=== PATIENT | female | born 1960 | race Caucasian/White ===

== ENCOUNTER 2019-11-19 18:28 | Observation (INO) | payer SELFPAY ==
[2019-11-19 18:36] VITALS: BP 163/84; PULSE 105; RESP 22; TEMP 37.1; O2SAT 98
[2019-11-19 18:43] LABS: Appearance Urine UA SL CLOUDY; Bilirubin Urine UA NEGATIVE (NEGATIVE); Color Urine UA YELLOW; Glucose Urine UA NEGATIVE (Negative); Ketones Urine UA NEGATIVE (NEGATIVE); Leukocyte Esterase Urine UA NEGATIVE (NEGATIVE); Nitrite Urine UA NEGATIVE (Negative); Occult Blood Urine UA 2+ (Negative); Protein Urine UA 2+ (Negative); Specific Gravity Urine UA 1.015 (1.000-1.035)
--- NOTE | 2019-11-19 18:43 | ED.ABDPAIN ---
HPI - Abdominal Pain <ABIGAIL Rodriguez - Last Filed: 11/19/19 21:07> General Chief Complaint: Abdominal Pain Stated Complaint: abd pain/fever/muscle cramps Time Seen by Provider: 11/19/19 18:34 Source: patient and family Mode of arrival: Ambulatory Limitations: no limitations History of Present Illness HPI narrative: The patient is a 59-year-old female who denies pertinent medical history, does have history of depression who presents with a chief complaint of abdominal pain and fever for the past week. She states her pain started in her left lower quadrant, she was having temps up to 102. Patient states that her had some veterinary clindamycin, so he gave her 2 cc of unknown concentration of liquid clindamycin prescribed for one of her dogs twice a day for the past week. He states that this helped her feel better in decreased her fevers. She complains of nausea, she has vomited once. She denies any dysuria does complain of urgency and frequency. The patient states she has not seen a healthcare provider in over 20 years. Related Data Home Medications Medication Instructions Recorded Confirmed No Known Home Medications 11/19/19 11/19/19 Allergies Allergy/AdvReac Type Severity Reaction Status Date / Time Tetracyclines Allergy Verified 11/19/19 20:37 Review of Systems <ABIGAIL Rodriguez - Last Filed: 11/19/19 21:07> Review of Systems Narrative: GENERAL: See HPI HEENT: Denies sinus pain, ear pain, sore throat, difficulty swallowing, dizziness. RESPIRATORY: Denies dyspnea, cough, wheezing, hemoptysis, sputum. CARDIOVASCULAR: Denies chest pain, palpitations, orthopnea, edema, GASTROINTESTINAL: See HPI : See HPI MUSCULOSKELETAL: denies weakness, joint pain, or bony pain SKIN: Denies rash, skin lesions, or other NEUROLOGIC: Denies weakness, headache, numbness, change in speech, confusion, seizures, incoordination. PSYCHIATRIC: No concerning psychosocial issues. 12 point review of systems is negative except for those stated above Exam <ABIGAIL Rodriugez - Last Filed: 11/19/19 21:07> Narrative Exam Narrative: GENERAL: This is a well-nourished, well-developed patient, no acute distress HEAD: Atraumatic. Normocephalic. No temporal or scalp tenderness. EYES: Pupils equal round and reactive. Extraocular motions intact. No scleral icterus. No injection or drainage. ENT: Nose without bleeding, purulent drainage or septal hematoma. Throat without erythema, tonsillar hypertrophy or exudate. Uvula midline. Airway patent. NECK: Trachea midline. No JVD or lymphadenopathy. Supple, nontender, no meningeal signs. CARDIOVASCULAR: Regular rate and rhythm RESPIRATORY: Clear to auscultation. Breath sounds equal bilaterally. No wheezes, rales, or rhonchi. No cough. No increased respiratory effort. No accessory muscle use. GASTROINTESTINAL: Abdomen soft, non-tender, nondistended. No hepato-splenomegaly, or palpable masses. No guarding. Active bowel sounds all 4 quadrants. EXTREMITIES: No clubbing, cyanosis, or edema. No joint tenderness, effusion, or edema noted. BACK: Nontender without deformity or crepitance. No flank tenderness. NEURO: AOx3. SKIN: No rash or erythema visible skin Initial Vital Signs Initial Vital Signs: Vital Signs Temperature 98.8 F 11/19/19 18:36 Pulse Rate 105 H 11/19/19 18:36 Respiratory Rate 22 11/19/19 18:36 Blood Pressure 163/84 H 11/19/19 18:36 Pulse Oximetry 98 11/19/19 18:36 <Mian New DO - Last Filed: 11/19/19 21:12> Initial Vital Signs Initial Vital Signs: Vital Signs Temperature 98.8 F 11/19/19 18:36 Pulse Rate 105 H 11/19/19 18:36 Respiratory Rate 22 11/19/19 18:36 Blood Pressure 163/84 H 11/19/19 18:36 Pulse Oximetry 98 11/19/19 18:36 Scores <STEPHANIE Rodriguez - Last Filed: 11/19/19 21:07> GCS [place] coma scale eye opening: Spontaneous [place] coma scale verbal response: Orientated [place] coma scale motor response: Obey commands [place] coma scale total score: 15 Course <STEPHANIE Rodriguez - Last Filed: 11/19/19 21:07> Orders Ordered: ED Orders 11/19/19 18:35 Urinalysis and Microscopic Stat Urine Culture Stat 11/19/19 18:55 Amylase Stat Complete Blood Count AUTO DIFF Stat Comprehensive Metabolic Panel Stat Lactate (Lactic Acid) Stat Lipase Stat Procalcitonin Stat 11/19/19 19:24 CT abdomen pelvis w con Stat 11/19/19 20:25 XR chest 1V Stat 11/19/19 20:26 Consult to Urology Stat Acetaminophen (Tylenol) 650 mg PO Q6HR PRN PRN Reason: Fever/Mild Pain (1-3) Lactated Ringer's (Lactated Ringers) 1,000 mls @ 100 mls/hr IV CONT LUCINDA Naloxone HCl (Narcan) 0.2 mg IV Q2MIN PRN PRN Reason: Opiate Reversal Ondansetron HCl (Zofran) 4 mg IV Q6HR PRN PRN Reason: Nausea And Vomiting Discontinued Medications Sodium Chloride (Normal Saline 0.9%) 1,000 mls @ 1,000 mls/hr IV BOLUS ONE Stop: 11/19/19 19:40 Last Infusion: 11/19/19 20:18 Dose: 0 mls/hr Documented by: Admin: 11/19/19 19:05 Dose: 1,000 mls/hr Documented by: JONNY Ondansetron HCl (Zofran) 4 mg IV NOW ONE Stop: 11/19/19 18:42 Last Admin: 11/19/19 19:05 Dose: 4 mg Documented by: JONNY Vital Signs Vital signs: Vital Signs - 8 hr 11/19/19 18:36 Temperature 98.8 F Pulse Rate 105 H Respiratory Rate 22 Blood Pressure 163/84 H Pulse Oximetry 98 <Mian New DO - Last Filed: 11/19/19 21:12> Orders Ordered: ED Orders 11/19/19 18:35 Urinalysis and Microscopic Stat Urine Culture Stat 11/19/19 18:55 Amylase Stat Complete Blood Count AUTO DIFF Stat Comprehensive Metabolic Panel Stat Lactate (Lactic Acid) Stat Lipase Stat Procalcitonin Stat 11/19/19 19:24 CT abdomen pelvis w con Stat 11/19/19 20:25 XR chest 1V Stat 11/19/19 20:26 Consult to Urology Stat Acetaminophen (Tylenol) 650 mg PO Q6HR PRN PRN Reason: Fever/Mild Pain (1-3) Lactated Ringer's (Lactated Ringers) 1,000 mls @ 100 mls/hr IV CONT LUCINDA Naloxone HCl (Narcan) 0.2 mg IV Q2MIN PRN PRN Reason: Opiate Reversal Ondansetron HCl (Zofran) 4 mg IV Q6HR PRN PRN Reason: Nausea And Vomiting Discontinued Medications Sodium Chloride (Normal Saline 0.9%) 1,000 mls @ 1,000 mls/hr IV BOLUS ONE Stop: 11/19/19 19:40 Last Infusion: 11/19/19 20:18 Dose: 0 mls/hr Documented by: Admin: 11/19/19 19:05 Dose: 1,000 mls/hr Documented by: JONNY Ondansetron HCl (Zofran) 4 mg IV NOW ONE Stop: 11/19/19 18:42 Last Admin: 11/19/19 19:05 Dose: 4 mg Documented by: JONNY Vital Signs Vital signs: Vital Signs - 8 hr 11/19/19 18:36 Temperature 98.8 F Pulse Rate 105 H Respiratory Rate 22 Blood Pressure 163/84 H Pulse Oximetry 98 MDM - Abdominal Pain <STEPHANIE Rodriguez - Last Filed: 11/19/19 21:07> Differential Diagnosis Differential diagnosis: Likely abdominal pain, acute appendicitis, calculus of kidney, constipation, diverticulitis, gastroenteritis and pancreatitis Lab Data Attestation: I reviewed the patient's lab results. Result diagrams: 11/19/19 18:55 11/19/19 18:55 Labs: Lab Results 11/19/19 11/19/19 11/19/19 Range/Units 18:35 18:55 18:55 WBC 13.0 H (4.5-11.0) X10^3/uL RBC 3.65 L (4.0-5.2) X10^6/uL Hgb 12.0 (12.0-16.0) g/dL Hct 35.1 L (36-46) % MCV 96.2 (80-100) fL MCH 32.7 (26-34) PG MCHC 34.0 (30-36) % RDW 13.3 (11.6-14.8) % Plt Count 286 (150-400) X10^3/uL Neut % (Auto) 77.5 H (50-75) % Lymph % (Auto) 11.2 L (25-40) % Weston % (Auto) 10.5 (3-14) % Eos % (Auto) 0.4 L (2-4) % Baso % (Auto) 0.4 (0-2) % Neut # (Auto) 73797 H (5738-0957) /uL Lymph # (Auto) 1500 (5723-7226) /uL Weston # (Auto) 1400 H (0-900) /uL Eos # (Auto) 0 (0-450) /uL Baso # (Auto) 0 (0-100) /uL Sodium (137-145) mmol/L Potassium (3.4-5.1) mmol/L Chloride (98-107) mmol/L Carbon Dioxide (22-32) mmol/L BUN (7-17) mg/dL Creatinine (0.52-1.04) mg/dL Estimated GFR (>60) mL/min BUN/Creatinine Ratio (6-22) Glucose (70-100) mg/dL Lactate (0.7-2.1) mmol/L Calcium (8.4-10.2) mg/dL Total Bilirubin (0.2-1.3) mg/dL AST (14-36) IU/L ALT (<35) IU/L Alkaline Phosphatase (38-126) U/L Total Protein (6.3-8.2) g/dL Albumin (3.5-5.0) g/dL Globulin (1.7-4.1) g/dL Albumin/Globulin Ratio (1.0-2.8) Amylase (30-110) U/L Lipase (23-300) U/L Procalcitonin 1.11 H (<0.5) ng/mL Urine Color Yellow Urine Appearance Sl cloudy Urine pH 5.5 (4.5-8.0) Ur Specific Carpenter 1.015 (1.000-1.035) Urine Protein 2+ H (Negative) Urine Glucose (UA) Negative (Negative) g/dL Urine Ketones Negative (NEGATIVE) Urine Occult Blood 2+ H (Negative) Urine Nitrate Negative (Negative) Urine Bilirubin Negative (NEGATIVE) Urine Urobilinogen 1.0 (0.2) E.U./dL Ur Leukocyte Esterase Negative (NEGATIVE) Urine RBC 1-5/hpf (0-5/HPF) Urine WBC 1-5/hpf (0-5/HPF) Ur Squamous Epith Cells 1-5 /hpf (0-5/HPF) Urine Bacteria Occasional (0-1) (None) Granular Casts 1-5/lpf (None) Other Casts 1-5 mixed cell /lfp Urine Mucus 1+ H (Negative) Ur Culture Indicated? Cult not indicated 11/19/19 11/19/19 Range/Units 18:55 18:55 WBC (4.5-11.0) X10^3/uL RBC (4.0-5.2) X10^6/uL Hgb (12.0-16.0) g/dL Hct (36-46) % MCV (80-100) fL MCH (26-34) PG MCHC (30-36) % RDW (11.6-14.8) % Plt Count (150-400) X10^3/uL Neut % (Auto) (50-75) % Lymph % (Auto) (25-40) % Weston % (Auto) (3-14) % Eos % (Auto) (2-4) % Baso % (Auto) (0-2) % Neut # (Auto) (7275-2013) /uL Lymph # (Auto) (7306-5172) /uL Weston # (Auto) (0-900) /uL Eos # (Auto) (0-450) /uL Baso # (Auto) (0-100) /uL Sodium 129 L (137-145) mmol/L Potassium 3.4 (3.4-5.1) mmol/L Chloride 90 L (98-107) mmol/L Carbon Dioxide 26 (22-32) mmol/L BUN 22 H (7-17) mg/dL Creatinine 1.45 H (0.52-1.04) mg/dL Estimated GFR 37.2 L (>60) mL/min BUN/Creatinine Ratio 15.2 (6-22) Glucose 149 H (70-100) mg/dL Lactate 1.5 (0.7-2.1) mmol/L Calcium 9.6 (8.4-10.2) mg/dL Total Bilirubin 0.9 (0.2-1.3) mg/dL AST 44 H (14-36) IU/L ALT 96 H (<35) IU/L Alkaline Phosphatase 121 (38-126) U/L Total Protein 8.1 (6.3-8.2) g/dL Albumin 3.8 (3.5-5.0) g/dL Globulin 4.3 H (1.7-4.1) g/dL Albumin/Globulin Ratio 0.9 L (1.0-2.8) Amylase 58 (30-110) U/L Lipase 259 (23-300) U/L Procalcitonin (<0.5) ng/mL Urine Color Urine Appearance Urine pH (4.5-8.0) Ur Specific Carpenter (1.000-1.035) Urine Protein (Negative) Urine Glucose (UA) (Negative) g/dL Urine Ketones (NEGATIVE) Urine Occult Blood (Negative) Urine Nitrate (Negative) Urine Bilirubin (NEGATIVE) Urine Urobilinogen (0.2) E.U./dL Ur Leukocyte Esterase (NEGATIVE) Urine RBC (0-5/HPF) Urine WBC (0-5/HPF) Ur Squamous Epith Cells (0-5/HPF) Urine Bacteria (None) Granular Casts (None) Other Casts Urine Mucus (Negative) Ur Culture Indicated? Imaging Data CT scan - abdomen/pelvis: Radiologist's Impression: [address] [place] [address] CT Scan Report Signed Patient: Yoel Plummer GMR#: [id number] : 2Acct:[id number] Age/Sex: 59 / FDate of Service: 11/19/19 Loc: ED Accession Number: [id number] Procedure: CT abdomen pelvis w con Ordering Provider: Angy Jane PHOTOGRAPHER FINISH- PROCEDURE: CT ABDOMEN PELVIS W CON INDICATIONS: LLQ pain, fever TECHNIQUE: After the administration of intravenous contrast, 5 mm thick sections acquired from the diaphragm to the symphysis. 5 mm coronal and sagittal reformats were acquired. For radiation dose reduction, the following was used: automated exposure control, adjustment of mA and/or kV according to patient size. COMPARISON: None. FINDINGS: Image quality: Excellent. ABDOMEN: Lung bases: Lung bases are clear. Heart size is normal. Solid organs: Liver is normal in size and enhancement except for a subtle 2 cm region of right posterior inferior hepatic segment hypodensity which is indistinctly marginated and does not show imaging findings characteristic of a hepatic hemangioma. Gallbladder appears normal . Biliary system is non dilated. Pancreas enhances normally. Spleen is normal in size and enhancement. No adrenal nodules. Kidneys demonstrate asymmetric size and enhancement, without right-sided hydronephrosis. The left kidney measures up to 12.4 cm craniocaudad and the right measures up to 8.9 cm. The left kidney is edematous, and shows reduced renal cortical enhancement, with cortical medullary differentiation on the left and not seen at the same time of scanning on the right. This is associated with moderate hydronephrosis, and mild urothelial enhancement and thickening. This leads to an impacted triangular calculus within the proximal ureter on the right, measuring up to 10 mm craniocaudad an approximately 5 x 6 mm in maximal axial dimension. Peritoneum and bowel: Bowel loops demonstrate normal wall thickness and caliber. No free fluid or air. Nodes and vessels: No retroperitoneal or mesenteric adenopathy by size criteria. Aorta and inferior vena cava are normal in size. Miscellaneous: No ventral hernias. PELVIS: Genitourinary: Bladder wall thickness is normal. Miscellaneous: No inguinal hernias or adenopathy. Bones: No suspicious bony lesions. No vertebral body compression fractures. IMPRESSION: Impacted moderately large calculus within the proximal left ureter measuring up to 10 mm in maximal dimension, craniocaudad, with 5 x 6 mm measurement of the calculus in axial dimensions. This is associated with both hydronephrosis and reduced renal cortical enhancement on the left, indicating high-grade obstruction. Mild urothelial enhancement and thickening on the left raises concern for urinary tract infection superimposed, versus other etiology for inflammatory change involving the urothelium. Findings immediately called to the emergency room healthcare provider caring for the patient. More inferiorly the ureters are normal, and no right-sided acute disease is found. There is a subtle region of hypodensity within the inferior right posterior panic segment, involving an area measuring approximately 2 cm in diameter, indistinctly marginated. This is of uncertain clinical significance and elective follow-up ultrasound through that area is recommended Dictated by: Juan José Reis M.D. on 11/19/2019 at 20:02 Approved by: Juan José Reis M.D. on 11/19/2019 at 20:14 [facility] Narrative Medical decision making narrative: The patient is a 59-year-old female who presents after a week of canine antibiotics with a chief complaint of left lower quadrant pain and fevers. Given her fevers, elevated procalcitonin, leukocytosis to 13, I did obtain a CT abdomen pelvis which illustrated a large impacted calculus of the left ureter. I spoke with Dr. Frank from Urology, who states that he will be able to take the patient to the OR tomorrow. Stated to hold off on antibiotics given that she is afebrile at this point time, no signs of infection in her urine. Urine culture is added per his request. Spoke with MARTY Hernandez who kindly admitted the patient to hospitalist service. Patient and expressed appreciation. Patient was swabbed for coronavirus as per protocol. Disc discussed with patient and her that if she is sick she should seek medical attention and not take canine prescriptions of antibiotics. Patient has been without pain or complaint throughout her stay in the emergency department. She has been hemodynamically stable and nontoxic appearing. <Mian New, - Last Filed: 11/19/19 21:12> Lab Data Labs: Lab Results 11/19/19 11/19/19 11/19/19 Range/Units 18:35 18:55 18:55 WBC 13.0 H (4.5-11.0) X10^3/uL RBC 3.65 L (4.0-5.2) X10^6/uL Hgb 12.0 (12.0-16.0) g/dL Hct 35.1 L (36-46) % MCV 96.2 (80-100) fL MCH 32.7 (26-34) PG MCHC 34.0 (30-36) % RDW 13.3 (11.6-14.8) % Plt Count 286 (150-400) X10^3/uL Neut % (Auto) 77.5 H (50-75) % Lymph % (Auto) 11.2 L (25-40) % Weston % (Auto) 10.5 (3-14) % Eos % (Auto) 0.4 L (2-4) % Baso % (Auto) 0.4 (0-2) % Neut # (Auto) 32159 H (0954-1175) /uL Lymph # (Auto) 1500 (9928-0006) /uL Weston # (Auto) 1400 H (0-900) /uL Eos # (Auto) 0 (0-450) /uL Baso # (Auto) 0 (0-100) /uL Sodium (137-145) mmol/L Potassium (3.4-5.1) mmol/L Chloride (98-107) mmol/L Carbon Dioxide (22-32) mmol/L BUN (7-17) mg/dL Creatinine (0.52-1.04) mg/dL Estimated GFR (>60) mL/min BUN/Creatinine Ratio (6-22) Glucose (70-100) mg/dL Lactate (0.7-2.1) mmol/L Calcium (8.4-10.2) mg/dL Total Bilirubin (0.2-1.3) mg/dL AST (14-36) IU/L ALT (<35) IU/L Alkaline Phosphatase (38-126) U/L Total Protein (6.3-8.2) g/dL Albumin (3.5-5.0) g/dL Globulin (1.7-4.1) g/dL Albumin/Globulin Ratio (1.0-2.8) Amylase (30-110) U/L Lipase (23-300) U/L Procalcitonin 1.11 H (<0.5) ng/mL Urine Color Yellow Urine Appearance Sl cloudy Urine pH 5.5 (4.5-8.0) Ur Specific Carpenter 1.015 (1.000-1.035) Urine Protein 2+ H (Negative) Urine Glucose (UA) Negative (Negative) g/dL Urine Ketones Negative (NEGATIVE) Urine Occult Blood 2+ H (Negative) Urine Nitrate Negative (Negative) Urine Bilirubin Negative (NEGATIVE) Urine Urobilinogen 1.0 (0.2) E.U./dL Ur Leukocyte Esterase Negative (NEGATIVE) Urine RBC 1-5/hpf (0-5/HPF) Urine WBC 1-5/hpf (0-5/HPF) Ur Squamous Epith Cells 1-5 /hpf (0-5/HPF) Urine Bacteria Occasional (0-1) (None) Granular Casts 1-5/lpf (None) Other Casts 1-5 mixed cell /lfp Urine Mucus 1+ H (Negative) Ur Culture Indicated? Cult not indicated 11/19/19 11/19/19 Range/Units 18:55 18:55 WBC (4.5-11.0) X10^3/uL RBC (4.0-5.2) X10^6/uL Hgb (12.0-16.0) g/dL Hct (36-46) % MCV (80-100) fL MCH (26-34) PG MCHC (30-36) % RDW (11.6-14.8) % Plt Count (150-400) X10^3/uL Neut % (Auto) (50-75) % Lymph % (Auto) (25-40) % Weston % (Auto) (3-14) % Eos % (Auto) (2-4) % Baso % (Auto) (0-2) % Neut # (Auto) (1217-0816) /uL Lymph # (Auto) (4151-6157) /uL Weston # (Auto) (0-900) /uL Eos # (Auto) (0-450) /uL Baso # (Auto) (0-100) /uL Sodium 129 L (137-145) mmol/L Potassium 3.4 (3.4-5.1) mmol/L Chloride 90 L (98-107) mmol/L Carbon Dioxide 26 (22-32) mmol/L BUN 22 H (7-17) mg/dL Creatinine 1.45 H (0.52-1.04) mg/dL Estimated GFR 37.2 L (>60) mL/min BUN/Creatinine Ratio 15.2 (6-22) Glucose 149 H (70-100) mg/dL Lactate 1.5 (0.7-2.1) mmol/L Calcium 9.6 (8.4-10.2) mg/dL Total Bilirubin 0.9 (0.2-1.3) mg/dL AST 44 H (14-36) IU/L ALT 96 H (<35) IU/L Alkaline Phosphatase 121 (38-126) U/L Total Protein 8.1 (6.3-8.2) g/dL Albumin 3.8 (3.5-5.0) g/dL Globulin 4.3 H (1.7-4.1) g/dL Albumin/Globulin Ratio 0.9 L (1.0-2.8) Amylase 58 (30-110) U/L Lipase 259 (23-300) U/L Procalcitonin (<0.5) ng/mL Urine Color Urine Appearance Urine pH (4.5-8.0) Ur Specific Carpenter (1.000-1.035) Urine Protein (Negative) Urine Glucose (UA) (Negative) g/dL Urine Ketones (NEGATIVE) Urine Occult Blood (Negative) Urine Nitrate (Negative) Urine Bilirubin (NEGATIVE) Urine Urobilinogen (0.2) E.U./dL Ur Leukocyte Esterase (NEGATIVE) Urine RBC (0-5/HPF) Urine WBC (0-5/HPF) Ur Squamous Epith Cells (0-5/HPF) Urine Bacteria (None) Granular Casts (None) Other Casts Urine Mucus (Negative) Ur Culture Indicated? Discharge Plan Departure Patient Disposition: Admitted as Observation Clinical Impression: Ureter, calculus, Creatinine elevation Admit Date/Time: 11/19/19 20:50 Admit Provider: Steph Bates <Mian New, - Last Filed: 11/19/19 21:12> Cosign ED Attending Cosignature Attestation: Dr New Co-Sign Statement: I was available for consultation during this patient's emergency department visit. This chart is signed by myself for administrative purposes only. I did not have direct contact with this patient during this visit. They were seen independently by the APC.
[2019-11-19 18:45] LABS: pH Urine UA 5.5 (4.5-8.0)
[2019-11-19 18:58] LABS: Bacteria Urine Occasional (0-1); Granular Casts Urine 1-5/LPF; RBC Urine 1-5/HPF (0-5/HPF); Squamous Epithelial Cell Urine 1-5 /HPF (0-5/HPF); WBC Urine 1-5/HPF (0-5/HPF)
[2019-11-19 18:59] LABS: Culture Indicated Urine Cult Not Indicated; Mucus Urine 1+ (Negative); Other Casts Urine 1-5 Mixed Cell /LFP
[2019-11-19 19:01] LABS: Add Manual Diff / Slide Review NO; Basophils Absolute Auto 0 /uL (0-100); Basophils Percent Auto 0.4 % (0-2); Eosinophils Absolute Auto 0 /uL (0-450); Eosinophils Percent Auto 0.4 % (2-4); Hematocrit 35.1 % (36-46); Lymphocytes Absolute Auto 1500 /uL (1100-4500); Lymphocytes Percent Auto 11.2 % (25-40); Mean Corpuscular Hemoglobin 32.7 PG (26-34); Mean Corpuscular Volume 96.2 fL (80-100); Monocytes Absolute Auto 1400 /uL (0-900); Monocytes Percent Auto 10.5 % (3-14); Neutrophils Absolute Auto 10100 /uL (1500-7000); Neutrophils Percent Auto 77.5 % (50-75); Platelet Count 286 X10^3/uL (150-400); Red Blood Cell Count 3.65 X10^6/uL (4.0-5.2); Red Cell Distribution Width 13.3 % (11.6-14.8)
[2019-11-19] MEDS: ONDANSETRON 4 MG/2 ML INJ IV (19:05)
[2019-11-19] MEDS: SODIUM CHLORIDE 0.9% 1,000 ML 1000 ML IV (19:05)
[2019-11-19 19:18] LABS: Alanine Aminotransferase 96 IU/L (<35); Albumin 3.8 g/dL (3.5-5.0); Albumin Globulin Ratio 0.9 (1.0-2.8); Alkaline Phosphatase 121 U/L (38-126); Amylase 58 U/L (30-110); Aspartate Aminotransferase 44 IU/L (14-36); BUN Creatinine Ratio 15.2 (6-22); Bilirubin Total 0.9 mg/dL (0.2-1.3); Blood Urea Nitrogen 22 mg/dL (7-17); Calcium 9.6 mg/dL (8.4-10.2); Carbon Dioxide 26 mmol/L (22-32); Chloride 90 mmol/L (98-107); Estimated Glomerular Filt Rate 37.2 mL/min (>60); Globulin 4.3 g/dL (1.7-4.1); Glucose 149 mg/dL (70-100); HEMOLYSIS < 15 (0-50); Lipase 259 U/L (23-300); Potassium 3.4 mmol/L (3.4-5.1); Sodium 129 mmol/L (137-145); Total Protein 8.1 g/dL (6.3-8.2)
[2019-11-19 19:19] LABS: Lactate (Lactic Acid) 1.5 mmol/L (0.7-2.1)
--- NOTE | 2019-11-19 19:24 | DI.CT.S_ITS ---
PROCEDURE: CT ABDOMEN PELVIS W CON INDICATIONS: LLQ pain, fever TECHNIQUE: After the administration of intravenous contrast, 5 mm thick sections acquired from the diaphragm to the symphysis. 5 mm coronal and sagittal reformats were acquired. For radiation dose reduction, the following was used: automated exposure control, adjustment of mA and/or kV according to patient size. COMPARISON: None. FINDINGS: Image quality: Excellent. ABDOMEN: Lung bases: Lung bases are clear. Heart size is normal. Solid organs: Liver is normal in size and enhancement except for a subtle 2 cm region of right posterior inferior hepatic segment hypodensity which is indistinctly marginated and does not show imaging findings characteristic of a hepatic hemangioma. Gallbladder appears normal . Biliary system is non dilated. Pancreas enhances normally. Spleen is normal in size and enhancement. No adrenal nodules. Kidneys demonstrate asymmetric size and enhancement, without right-sided hydronephrosis. The left kidney measures up to 12.4 cm craniocaudad and the right measures up to 8.9 cm. The left kidney is edematous, and shows reduced renal cortical enhancement, with cortical medullary differentiation on the left and not seen at the same time of scanning on the right. This is associated with moderate hydronephrosis, and mild urothelial enhancement and thickening. This leads to an impacted triangular calculus within the proximal ureter on the right, measuring up to 10 mm craniocaudad an approximately 5 x 6 mm in maximal axial dimension. Peritoneum and bowel: Bowel loops demonstrate normal wall thickness and caliber. No free fluid or air. Nodes and vessels: No retroperitoneal or mesenteric adenopathy by size criteria. Aorta and inferior vena cava are normal in size. Miscellaneous: No ventral hernias. PELVIS: Genitourinary: Bladder wall thickness is normal. Miscellaneous: No inguinal hernias or adenopathy. Bones: No suspicious bony lesions. No vertebral body compression fractures. IMPRESSION: Impacted moderately large calculus within the proximal left ureter measuring up to 10 mm in maximal dimension, craniocaudad, with 5 x 6 mm measurement of the calculus in axial dimensions. This is associated with both hydronephrosis and reduced renal cortical enhancement on the left, indicating high-grade obstruction. Mild urothelial enhancement and thickening on the left raises concern for urinary tract infection superimposed, versus other etiology for inflammatory change involving the urothelium. Findings immediately called to the emergency room healthcare provider caring for the patient. More inferiorly the ureters are normal, and no right-sided acute disease is found. There is a subtle region of hypodensity within the inferior right posterior panic segment, involving an area measuring approximately 2 cm in diameter, indistinctly marginated. This is of uncertain clinical significance and elective follow-up ultrasound through that area is recommended Dictated by: Juan José Reis M.D. on 11/19/2019 at 20:02 Approved by: Juan José Reis M.D. on 11/19/2019 at 20:14
[2019-11-19 19:39] LABS: Procalcitonin 1.11 ng/mL (<0.5)
--- NOTE | 2019-11-19 20:25 | DI.RAD.S_ITS ---
PROCEDURE: XR CHEST 1V INDICATIONS: plan pre operative TECHNIQUE: One view of the chest was acquired. COMPARISON: None. FINDINGS: Surgical changes and devices: None. Lungs and pleura: Lungs are clear. No pleural effusions or pneumothorax. Mediastinum: Mediastinal contours appear normal. Heart size is normal. Bones and chest wall: No suspicious bony lesions. Overlying soft tissues appear unremarkable. IMPRESSION: Normal for age, no contraindication to surgical intervention is found. Dictated by: Juan José Reis M.D. on 11/19/2019 at 20:40 Approved by: Juan José Reis M.D. on 11/19/2019 at 20:41
[2019-11-19 20:54] VITALS: BP 116/67; PULSE 78; RESP 16; O2SAT 96
[2019-11-19 21:30] LABS: COVID19 -Nasal RAPID Negative (Negative)
[2019-11-19 21:50] VITALS: BP 128/80; PULSE 81; RESP 16; TEMP 37.6; O2SAT 97
[2019-11-19 21:52] VITALS: BMI 30.9
[2019-11-19] MEDS: LACTATED RINGERS 1,000 ML 100 ML IV (22:22)
--- NOTE | 2019-11-19 22:36 | PC.NURSE ---
Pt arrived on unit at approx 2200. She denied pain and nausea, voided clear pale yellow 100 mL. Has a strong gait and denies dizziness. HRR, LS = clear. Spouse is in room. From [facility]. NPO.
[2019-11-19 23:50] VITALS: BP 132/73; PULSE 85; RESP 16; TEMP 36.8; O2SAT 97
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
[2019-11-20] VITALS (21 sets, daily range): BP systolic 102–131; BP diastolic 53–78; PULSE 63–95; RESP 16–24; TEMP 35.6–38.7; O2SAT 93–98; BMI 30.9
--- NOTE | 2019-11-20 | DI.RAD.S_ITS ---
PROCEDURE: XR KUB INDICATIONS: Left ureteral calculus TECHNIQUE: One view of the abdomen acquired. COMPARISON: [facility], CT, CT ABDOMEN PELVIS W CON, 11/19/2019, 19:39. FINDINGS: Surgical changes and devices: None. Bowel: Scattered small bowel and colonic gas. No dilated loops of bowel seen. Soft tissues: Subtle density in the left proximal ureter in the region of the previously seen kidney stone on recent CT. No suspicious abdominal calcifications. Bones: No suspicious bony lesions. IMPRESSION: The obstructing calculus in the proximal left ureter seen on recent CT is faintly visualized. Dictated by: Tree Foote M.D. on 11/20/2019 at 7:56 Approved by: Tree Foote M.D. on 11/20/2019 at 7:59
--- NOTE | 2019-11-20 | DI.RAD.S_ITS ---
PROCEDURE: XR ABDOMEN 1V INDICATIONS: left stent placement TECHNIQUE: Single intraoperative fluoroscopic view of the abdomen acquired. COMPARISON: None. FINDINGS: Intraoperative fluoroscopic images of upper abdomen shows a left-sided ureteral stent in place. IMPRESSION: Fluoro guidance was provided intraoperatively for placement of a left-sided ureteral stent. Dictated by: Frakn Loja M.D. on 11/20/2019 at 14:39 Approved by: Frank Loja M.D. on 11/20/2019 at 14:40
[2019-11-20] MEDS: CEFTRIAXONE 1 GM/50 ML FROZ.PIGGY IV (00:08)
[2019-11-20] MEDS: diphenhydrAMINE 25 MG TABLET PO (00:41)
[2019-11-20 05:28] LABS: Add Manual Diff / Slide Review NO; Basophils Absolute Auto 100 /uL (0-100); Basophils Percent Auto 0.5 % (0-2); Eosinophils Absolute Auto 100 /uL (0-450); Eosinophils Percent Auto 0.6 % (2-4); Hematocrit 31.8 % (36-46); Hemoglobin 10.7 g/dL (12.0-16.0); Lymphocytes Absolute Auto 1300 /uL (1100-4500); Lymphocytes Percent Auto 11.9 % (25-40); Mean Corpuscular HGB Conc 33.6 % (30-36); Mean Corpuscular Hemoglobin 32.6 PG (26-34); Mean Corpuscular Volume 96.9 fL (80-100); Monocytes Absolute Auto 1300 /uL (0-900); Monocytes Percent Auto 11.9 % (3-14); Neutrophils Absolute Auto 8300 /uL (1500-7000); Neutrophils Percent Auto 75.1 % (50-75); Platelet Count 267 X10^3/uL (150-400); Red Blood Cell Count 3.28 X10^6/uL (4.0-5.2); Red Cell Distribution Width 13.6 % (11.6-14.8)
[2019-11-20 05:35] LABS: Blood Urea Nitrogen 19 mg/dL (7-17); Calcium 8.8 mg/dL (8.4-10.2); Carbon Dioxide 27 mmol/L (22-32); Chloride 98 mmol/L (98-107); Estimated Glomerular Filt Rate 40.1 mL/min (>60); Glucose 109 mg/dL (70-100); HEMOLYSIS < 15 (0-50); Potassium 4.3 mmol/L (3.4-5.1); Sodium 133 mmol/L (137-145)
[2019-11-20] MEDS: ACETAMINOPHEN 325 MG TABLET 650 MG PO (06:11)
--- NOTE | 2019-11-20 06:37 | PC.NURSE ---
Strained all her urine no urinary calculi noted. But pt. C/O pain @ 0610, shivering & temp. up to 101.7. Pain level is up to 7 now, earlier she denied pain. Medicated with 650 mg. of Tylenol PO with sips of water & MARTY Bates notified. Will cont. POC & monitor.
--- NOTE | 2019-11-20 10:30 | CM.DANOTE ---
DCP: Case received, EMR reviewed and met with patient. Introduced self and role. Was able to obtain some information from patient regarding her baseline activity level as well as living situation. DCP assessment completed with information currently available. Patient is a 59 year old female who admitted yesterday evening to the care of the hospitalist team. PCP: Dr. Cole. Payer: confirmed: No insurance. Patient came to the hospital via private vehicle secondary to abdominal pain, fever, as well as nausea. Patient holds diagnosis of urethral stone. She is to be having a cystoscopy today. Met with patient in her room. She has not seen a provider in approximately 20 years. Confirmed with patient that she does not have any health insurance. She does have a [employer] business. Patient just never felt like she needed to see a doctor. Her and her spouse, Chilango reside in [place] on [address]. She is independent at baseline. Let patient know that this rn case manager would notify admission counselors, regarding to her currently being uninsured, so they can discuss options. Sent them an email, and they stated that they would be coming up on the floor to discuss, and possibly bring an application. P: DCP to continue to follow. She should be able to go home when she is medically stable. Kristie Fry RN/[employer]ptic Tank Service Technician
[2019-11-20] MEDS: LACTATED RINGERS 1,000 ML 100 ML IV (10:34)
--- NOTE | 2019-11-20 12:31 | P.CONS_ITS ---
History of Present Illness Consult details Date Patient Seen: 11/20/19 Time Patient Seen: 06:30 Chief complaint: abd pain/fever/muscle cramps Reason for consult: Obstructing 10 x 6 mm left proximal ureteral calculus Narrative: The patient is a very pleasant 59-year-old white female who was admitted through the ED last night for presenting complaint of 1 week history of left abdominal pain and fever. She has not had any health care for his some 20 years. The on set of her symptoms, her had provided her oral clindamycin and liquid form that had been prescribed for 1 of their pets. She does admit having some a subjective improvement but her situation deteriorated throughout the day yesterday prompting presentation for formal evaluation. White blood cell count was 13K, procalcitonin was elevated, and she had fever of 102? F at presentation. Urinalysis was devoid of white cells and significant bacteria, but hematuria was noted. CT KUB demonstrated a pyramidal shaped calculus impacted in proximal left ureter measuring approximately 10 mm x 6 mm. She was then admitted in urological consultation requested. She denies a history of UTI or previous stone. Meds Home Medications and Allergies Home Medications Medication Instructions Recorded Confirmed Type No Known Home Medications 11/19/19 11/19/19 History Allergies Allergy/AdvReac Type Severity Reaction Status Date / Time Tetracyclines Allergy Verified 11/19/19 20:37 Review of Systems Review of Systems ROS: Yes All systems reviewed with the patient and are negative except as otherwise documented Exam Vital Signs (past 8 hours): - 11/20/19 05:13 11/20/19 06:10 11/20/19 06:11 Temperature 99.5 F 101.7 F H 101.7 F H Pulse Rate 78 Respiratory Rate 18 Blood Pressure 119/74 Pulse Oximetry 96 11/20/19 06:48 11/20/19 07:12 11/20/19 09:37 Temperature 100.4 F H 98.4 F Pulse Rate 95 H Respiratory Rate 16 Blood Pressure 105/53 L Pulse Oximetry 93 96 Oxygen Delivery Method Room Air Oxygen Flow Rate 0 Narrative Exam Narrative: She is a well-developed and mildly over nourished white female lying comfortably in bed. She is diaphoretic. She denies current chills but has had intermittent chills and diaphoresis since admission. Head/neck-sclera clear pupils are equal. Neck is supple, no JVD or adenopathy. Chest-clear and equal effort and expansion bilaterally. Heart-rate is about 90, rhythm is regular. No extra sounds appreciated. Abdomen-nondistended, protuberant, nontender. Bowel sounds are active. Objective Labs Result Diagrams: 11/20/19 04:55 11/20/19 04:55 Labs: Laboratory Results - last 24 hr 11/19/19 11/19/19 11/19/19 18:35 18:55 18:55 WBC 13.0 H RBC 3.65 L Hgb 12.0 Hct 35.1 L MCV 96.2 MCH 32.7 MCHC 34.0 RDW 13.3 Plt Count 286 Neut % (Auto) 77.5 H Lymph % (Auto) 11.2 L [place] % (Auto) 10.5 Eos % (Auto) 0.4 L Baso % (Auto) 0.4 Neut # (Auto) 55517 H Lymph # (Auto) 1500 [place] # (Auto) 1400 H Eos # (Auto) 0 Baso # (Auto) 0 Sodium Potassium Chloride Carbon Dioxide BUN Creatinine Estimated GFR BUN/Creatinine Ratio Glucose Lactate Calcium Total Bilirubin AST ALT Alkaline Phosphatase Total Protein Albumin Globulin Albumin/Globulin Ratio Amylase Lipase Procalcitonin 1.11 H Urine Color Yellow Urine Appearance Sl cloudy Urine pH 5.5 Ur Specific [place] 1.015 Urine Protein 2+ H Urine Glucose (UA) Negative Urine Ketones Negative Urine Occult Blood 2+ H Urine Nitrate Negative Urine Bilirubin Negative Urine Urobilinogen 1.0 Ur Leukocyte Esterase Negative Urine RBC 1-5/hpf Urine WBC 1-5/hpf Ur Squamous Epith Cells 1-5 /hpf Urine Bacteria Occasional (0-1) Granular Casts 1-5/lpf Other Casts 1-5 mixed cell /lfp Urine Mucus 1+ H Ur Culture Indicated? Cult not indicated COVID-19 PCR 11/19/19 11/19/19 11/19/19 18:55 18:55 20:30 WBC RBC Hgb Hct MCV MCH MCHC RDW Plt Count Neut % (Auto) Lymph % (Auto) [place] % (Auto) Eos % (Auto) Baso % (Auto) Neut # (Auto) Lymph # (Auto) [place] # (Auto) Eos # (Auto) Baso # (Auto) Sodium 129 L Potassium 3.4 Chloride 90 L Carbon Dioxide 26 BUN 22 H Creatinine 1.45 H Estimated GFR 37.2 L BUN/Creatinine Ratio 15.2 Glucose 149 H Lactate 1.5 Calcium 9.6 Total Bilirubin 0.9 AST 44 H ALT 96 H Alkaline Phosphatase 121 Total Protein 8.1 Albumin 3.8 Globulin 4.3 H Albumin/Globulin Ratio 0.9 L Amylase 58 Lipase 259 Procalcitonin Urine Color Urine Appearance Urine pH Ur Specific [place] Urine Protein Urine Glucose (UA) Urine Ketones Urine Occult Blood Urine Nitrate Urine Bilirubin Urine Urobilinogen Ur Leukocyte Esterase Urine RBC Urine WBC Ur Squamous Epith Cells Urine Bacteria Granular Casts Other Casts Urine Mucus Ur Culture Indicated? COVID-19 PCR Negative 11/20/19 11/20/19 04:55 04:55 WBC 11.0 RBC 3.28 L Hgb 10.7 L Hct 31.8 L MCV 96.9 MCH 32.6 MCHC 33.6 RDW 13.6 Plt Count 267 Neut % (Auto) 75.1 H Lymph % (Auto) 11.9 L [place] % (Auto) 11.9 Eos % (Auto) 0.6 L Baso % (Auto) 0.5 Neut # (Auto) 8300 H Lymph # (Auto) 1300 [place] # (Auto) 1300 H Eos # (Auto) 100 Baso # (Auto) 100 Sodium 133 L Potassium 4.3 Chloride 98 Carbon Dioxide 27 BUN 19 H Creatinine 1.36 H Estimated GFR 40.1 L BUN/Creatinine Ratio 14.0 Glucose 109 H Lactate Calcium 8.8 Total Bilirubin AST ALT Alkaline Phosphatase Total Protein Albumin Globulin Albumin/Globulin Ratio Amylase Lipase Procalcitonin Urine Color Urine Appearance Urine pH Ur Specific [place] Urine Protein Urine Glucose (UA) Urine Ketones Urine Occult Blood Urine Nitrate Urine Bilirubin Urine Urobilinogen Ur Leukocyte Esterase Urine RBC Urine WBC Ur Squamous Epith Cells Urine Bacteria Granular Casts Other Casts Urine Mucus Ur Culture Indicated? COVID-19 PCR Assessment & Plan Assessment & Plan narrative: Assessment: 1. Obstructing 10 x 6 mm left proximal ureteral calculus. 2. Probable urosepsis with outpatient treatment with an antibiotic prior to presentation. Plan: 1. Urgent scheduling to operating room today for cystoscopy and placement left ureteral stent. Reviewed findings then discussed impression. Explained the rationale and indications for urgent endoscopic stent placement for decompression of the likely infected left upper tract. Explained the common side effects, possible complications, perioperative limitations/restrictions in reasonable expectations of outcomes and recovery. Specifically, I explained that definitive treatment of the stone will occur secondarily following adequate course of antibiotic treatment and clinical improvement. Both her and her who was present agree and wish to proceed.
--- NOTE | 2019-11-20 13:16 | PM.PREOP ---
Pre-operative Note COVID-19 COVID-19 status: Negative Interval Note History & Physical reviewed/Exam performed by Physician: Yes Changes to H&P: No
[2019-11-20] MEDS: LACTATED RINGERS 1,000 ML 42 ML IV (13:45)
--- NOTE | 2019-11-20 13:55 | PM.PN.1 ---
Subjective Subjective Date Patient Seen: 11/20/19 Time Patient Seen: 13:55 Interval history: Yoel Plummer is a pleasant 59 y.o. female with no current medical problems who presented to the ED with a chief complaint of abdominal pain and fever for the past week. She was found to have an obstructing L ureteral stone and will undergo cystoscopy with stent placement later today with urology. Urine cultures are pending. Patient was febrile on admission but feels improved. She took oral antibiotics that were prescribed for her pets. She had a severe episode of abdominal pain this morning which resolved. Pain is primarily left lower quadrant that starts in her back and radiates down. Admission creatinine of 1.45 did improved slightly to 1.36 early this morning. She has not had any primary care in many years. Exam Vital Signs (past 8 hours): - 11/20/19 06:10 11/20/19 06:11 11/20/19 06:48 Temperature 101.7 F H 101.7 F H 100.4 F H Pulse Rate Respiratory Rate Blood Pressure Pulse Oximetry 11/20/19 07:12 11/20/19 09:37 11/20/19 12:48 Temperature 98.4 F 97.2 F L Pulse Rate 95 H 79 Respiratory Rate 16 16 Blood Pressure 105/53 L 102/65 Pulse Oximetry 93 96 95 11/20/19 13:19 Temperature 99.4 F Pulse Rate 76 Respiratory Rate 16 Blood Pressure 108/78 Pulse Oximetry 96 Oxygen Delivery Method Room Air Oxygen Flow Rate 0 Narrative Exam Narrative: GENERAL APPEARANCE: Well developed, well nourished, in no acute distress. SKIN: Inspection of the skin reveals no rashes, ulcerations or petechiae. HEENT: Normocephalic atraumatic, extraocular muscles are intact, oropharynx is clear and mucous membranes are moist, neck is supple without adenopathy NECK: Supple and symmetric. There was no thyroid enlargement, and no tenderness, or masses were felt. CHEST: Normal AP diameter and normal contour without any kyphoscoliosis. LUNGS: Auscultation of the lungs revealed no wheezes, rhonchi, or rales. CARDIOVASCULAR: There was a regular rate and rhythm without any murmurs, gallops, rubs. Peripheral pulses were 2+ and symmetric. ABDOMEN: Soft and nontender with normal bowel sounds. No ascites was noted. MUSCULOSKELETAL: There was no tenderness or effusions noted. Muscle strength and tone were normal. EXTREMITIES: No cyanosis, clubbing or edema. NEUROLOGIC: Alert and oriented x 3. Normal affect. Gait was normal. Strength is +5/5 in the Upper Extremities and Lower Extremities Bilaterally. Sensation to touch was normal. Objective Labs Result Diagrams: 11/20/19 04:55 11/20/19 04:55 Labs: Laboratory Results - last 24 hr 11/19/19 11/19/19 11/19/19 18:35 18:55 18:55 WBC 13.0 H RBC 3.65 L Hgb 12.0 Hct 35.1 L MCV 96.2 MCH 32.7 MCHC 34.0 RDW 13.3 Plt Count 286 Neut % (Auto) 77.5 H Lymph % (Auto) 11.2 L [place] % (Auto) 10.5 Eos % (Auto) 0.4 L Baso % (Auto) 0.4 Neut # (Auto) 58196 H Lymph # (Auto) 1500 [place] # (Auto) 1400 H Eos # (Auto) 0 Baso # (Auto) 0 Sodium Potassium Chloride Carbon Dioxide BUN Creatinine Estimated GFR BUN/Creatinine Ratio Glucose Lactate Calcium Total Bilirubin AST ALT Alkaline Phosphatase Total Protein Albumin Globulin Albumin/Globulin Ratio Amylase Lipase Procalcitonin 1.11 H Urine Color Yellow Urine Appearance Sl cloudy Urine pH 5.5 Ur Specific [place] 1.015 Urine Protein 2+ H Urine Glucose (UA) Negative Urine Ketones Negative Urine Occult Blood 2+ H Urine Nitrate Negative Urine Bilirubin Negative Urine Urobilinogen 1.0 Ur Leukocyte Esterase Negative Urine RBC 1-5/hpf Urine WBC 1-5/hpf Ur Squamous Epith Cells 1-5 /hpf Urine Bacteria Occasional (0-1) Granular Casts 1-5/lpf Other Casts 1-5 mixed cell /lfp Urine Mucus 1+ H Ur Culture Indicated? Cult not indicated COVID-19 PCR 11/19/19 11/19/19 11/19/19 18:55 18:55 20:30 WBC RBC Hgb Hct MCV MCH MCHC RDW Plt Count Neut % (Auto) Lymph % (Auto) [place] % (Auto) Eos % (Auto) Baso % (Auto) Neut # (Auto) Lymph # (Auto) [place] # (Auto) Eos # (Auto) Baso # (Auto) Sodium 129 L Potassium 3.4 Chloride 90 L Carbon Dioxide 26 BUN 22 H Creatinine 1.45 H Estimated GFR 37.2 L BUN/Creatinine Ratio 15.2 Glucose 149 H Lactate 1.5 Calcium 9.6 Total Bilirubin 0.9 AST 44 H ALT 96 H Alkaline Phosphatase 121 Total Protein 8.1 Albumin 3.8 Globulin 4.3 H Albumin/Globulin Ratio 0.9 L Amylase 58 Lipase 259 Procalcitonin Urine Color Urine Appearance Urine pH Ur Specific [place] Urine Protein Urine Glucose (UA) Urine Ketones Urine Occult Blood Urine Nitrate Urine Bilirubin Urine Urobilinogen Ur Leukocyte Esterase Urine RBC Urine WBC Ur Squamous Epith Cells Urine Bacteria Granular Casts Other Casts Urine Mucus Ur Culture Indicated? COVID-19 PCR Negative 11/20/19 11/20/19 04:55 04:55 WBC 11.0 RBC 3.28 L Hgb 10.7 L Hct 31.8 L MCV 96.9 MCH 32.6 MCHC 33.6 RDW 13.6 Plt Count 267 Neut % (Auto) 75.1 H Lymph % (Auto) 11.9 L [place] % (Auto) 11.9 Eos % (Auto) 0.6 L Baso % (Auto) 0.5 Neut # (Auto) 8300 H Lymph # (Auto) 1300 [place] # (Auto) 1300 H Eos # (Auto) 100 Baso # (Auto) 100 Sodium 133 L Potassium 4.3 Chloride 98 Carbon Dioxide 27 BUN 19 H Creatinine 1.36 H Estimated GFR 40.1 L BUN/Creatinine Ratio 14.0 Glucose 109 H Lactate Calcium 8.8 Total Bilirubin AST ALT Alkaline Phosphatase Total Protein Albumin Globulin Albumin/Globulin Ratio Amylase Lipase Procalcitonin Urine Color Urine Appearance Urine pH Ur Specific [place] Urine Protein Urine Glucose (UA) Urine Ketones Urine Occult Blood Urine Nitrate Urine Bilirubin Urine Urobilinogen Ur Leukocyte Esterase Urine RBC Urine WBC Ur Squamous Epith Cells Urine Bacteria Granular Casts Other Casts Urine Mucus Ur Culture Indicated? COVID-19 PCR Assessment & Plan Assessment & Plan narrative: Yoel Plummer is a pleasant 59 y.o. female with no current medical problems who presented to the ED with a chief complaint of abdominal pain and fever for the past week. She was found to have an obstructing L ureteral stone and will undergo cystoscopy with stent placement later today with urology. 1. 6x10 mm obstructive nephrolithiasis with corresponding L hydronephrosis, acute, present on admission -Dr. Lloyd consulting and plans to do a cystocopy to remove the stone -continue ceftriaxone, patient was taking outpatient antibiotics which may be affecting UA and may result in a negative culture. 2. acute cystitis, present on admission. - SOFA score of only 1, sepsis ruled out. UA not consistent with infection however patient had been taking outpatient clindamycin prior to admission. - continue ceftriaxone as noted above. - procalcitonin elevated, will continue to follow. 3. hyponatremia, acute and present on admission - continue IV fluids. Patient has not had primary care in many years. Will obtain TSH, A1c, lipid panel. Consults: Dr. Lloyd, Urology consult and involvement is appreciated. Dispo: Probable discharge to home, timing unclear at the moment pending urological interventions. Code Status: Full code as discussed with patient Quality VTE Deep Vein Thrombosis/Pulmonary Embolism Present on Admission: No
[2019-11-20] MEDS: CEFAZOLIN 2 GM/100 ML FROZ.PIGGY IV (14:00)
--- NOTE | 2019-11-20 14:12 | SUR.OPER ---
Lithotomy on padded OR bed, head on pillow, arms secured on padded arm boards at <90 degrees abduction. Legs secured in padded yellow fins stirrups.
--- NOTE | 2019-11-20 14:43 | P.OP_ITS ---
Operative Date/Time/Diagnoses Date of procedure: 11/20/19 Time of procedure: 02:15 Pre-op diagnosis: 1. Obstructing 10 x 6 mm left proximal ureteral calculus. 2. Urosepsis. Post-op diagnosis: same Procedure & Clinicians Procedure: 1. Cystoscopy and left ureteral stent placement. 2. Cystoscopy and left ureteral stone manipulation without removal. Same procedure as scheduled: Yes Indications: 1. Obstructing 10 x 6 mm left proximal ureteral calculus. 2. Urosepsis. Click Yes if Unassisted: Yes Anesthesia Type: General Operative Notes Findings: Urethra normal. Bladder-urothelium unremarkable throughout, and orifices are normal position bilaterally. The a urine contained the bladder is turbid. No stone, tumor foreign body. Closure Type: not applicable Applied: other (6 x 22-32 cm left double-J ureteral stent.) Estimated Blood Loss (mL): 0 Blood products transfused: none Tourniquet time (min): 0 Procedure in detail: Patient was positioned supine was administered general anesthesia. She was then repositioned semi lithotomy the lower abdomen genitalia and groin and vaginal vault were prepped and draped in sterile fashion. A 22 Pashto panendoscope was then passed lower urinary tract with findings as described above. A 0.35 hybrid guidewire was then advanced into the left ureteral orifice and then advanced proximally under direct and fluoroscopic guidance. The index calculus was not well visualized due to abundant and complex stool and gas pattern. A 6 x 22-32 cm multi-length stent was then selected. This was then advanced over the hybrid guide wire, again under direct and fluoroscopic guidance. An impressive E flux of thick purulent material then emanated from the left ureteral orifice. A sample was obtained from the bladder and submitted for analysis and reflex culture. NO RETRIEVAL LINE WAS LEFT ATTACHED. The guidewire was then removed and the bladder was drained completely. The patient was then awakened, transferred to [facility], and transferred to recovery in stable condition. Complications: none Post-operative Condition: stable Disposition: Acute Care
--- NOTE | 2019-11-20 14:44 | SUR.PHASEI ---
Report called to Meme Lubin
[2019-11-20 15:05] LABS: Appearance Urine UA SL CLOUDY; Bilirubin Urine UA NEGATIVE (NEGATIVE); Color Urine UA YELLOW; Glucose Urine UA NEGATIVE (Negative); Ketones Urine UA NEGATIVE (NEGATIVE); Leukocyte Esterase Urine UA 3+ (NEGATIVE); Nitrite Urine UA NEGATIVE (Negative); Occult Blood Urine UA 3+ (Negative); Protein Urine UA TRACE (Negative); Specific Gravity Urine UA <=1.005 (1.000-1.035)
--- NOTE | 2019-11-20 15:08 | DI.RAD.S_ITS ---
PROCEDURE: XR KUB INDICATIONS: Left ureteral calculus status post left stent placement. TECHNIQUE: One view of the abdomen acquired. COMPARISON: [facility], CT, CT ABDOMEN PELVIS W CON, 11/19/2019, 19:39. [facility], CR, XR KUB, 11/20/2019, 7:36. FINDINGS: Surgical changes and devices: A double pigtail ureteral catheter on the left is been placed crossing the area of prior obstructive proximal left ureteral calculus, which had measured up to 10 mm in maximal dimension.. Bowel: Bowel gas pattern is normal. Soft tissues: No suspicious abdominal calcifications. Visualized solid organ contours appear normal in size. Bones: No suspicious bony lesions. IMPRESSION: Double pigtail left ureteral catheter positioning normal. The previously identified large calculus in the proximal left ureter is no longer seen. Dictated by: Juan José Reis M.D. on 11/20/2019 at 16:01 Approved by: Juan José Reis M.D. on 11/20/2019 at 16:03
--- NOTE | 2019-11-20 15:16 | SUR.PHASEI ---
Patient transferred to the floor. VS stable. IV saline locked. Report given to Kyle.
[2019-11-20 15:30] LABS: Bacteria Urine Moderate (10-30); RBC Urine 30-100/HPF (0-5/HPF); WBC Urine >100/HPF (0-5/HPF)
[2019-11-20 15:31] LABS: Culture Indicated Urine Specimen Cultured
[2019-11-21] VITALS: BP 143/66; PULSE 56; RESP 18; TEMP 36.7; O2SAT 96
[2019-11-21 05:37] VITALS: BP 128/75; PULSE 62; RESP 18; TEMP 36.5; O2SAT 96
[2019-11-21 06:17] LABS: Add Manual Diff / Slide Review NO; Basophils Absolute Auto 0 /uL (0-100); Basophils Percent Auto 0.2 % (0-2); Eosinophils Absolute Auto 0 /uL (0-450); Hematocrit 33.5 % (36-46); Hemoglobin 10.9 g/dL (12.0-16.0); Lymphocytes Absolute Auto 800 /uL (1100-4500); Lymphocytes Percent Auto 5.8 % (25-40); Mean Corpuscular HGB Conc 32.6 % (30-36); Mean Corpuscular Hemoglobin 32.2 PG (26-34); Mean Corpuscular Volume 98.7 fL (80-100); Monocytes Absolute Auto 400 /uL (0-900); Monocytes Percent Auto 2.8 % (3-14); Neutrophils Absolute Auto 13000 /uL (1500-7000); Neutrophils Percent Auto 91.2 % (50-75); Platelet Count 287 X10^3/uL (150-400); Red Blood Cell Count 3.39 X10^6/uL (4.0-5.2); Red Cell Distribution Width 13.8 % (11.6-14.8); White Blood Cell Count 14.2 X10^3/uL (4.5-11.0)
[2019-11-21 06:24] LABS: Hemoglobin A1C% w Est Avg Glu 5.6 % (4.0-6.0)
[2019-11-21 06:27] LABS: Alanine Aminotransferase 88 IU/L (<35); Albumin 3.3 g/dL (3.5-5.0); Albumin Globulin Ratio 0.9 (1.0-2.8); Alkaline Phosphatase 140 U/L (38-126); Aspartate Aminotransferase 55 IU/L (14-36); BUN Creatinine Ratio 17.5 (6-22); Bilirubin Total 0.4 mg/dL (0.2-1.3); Bilirubin Unconjugated 0.1 mg/dL (0.0-1.1); Blood Urea Nitrogen 20 mg/dL (7-17); Calcium 8.9 mg/dL (8.4-10.2); Carbon Dioxide 26 mmol/L (22-32); Chloride 102 mmol/L (98-107); Estimated Glomerular Filt Rate 49.1 mL/min (>60); Globulin 3.7 g/dL (1.7-4.1); Glucose 162 mg/dL (70-100); HEMOLYSIS < 15 (0-50); Magnesium 2.6 mg/dL (1.6-2.3); Potassium 4.6 mmol/L (3.4-5.1); Sodium 137 mmol/L (137-145)
[2019-11-21 06:44] LABS: Procalcitonin 13.97 ng/mL (<0.5)
[2019-11-21 08:20] VITALS: BP 119/66; PULSE 76; RESP 16; TEMP 36.6; O2SAT 95
[2019-11-21] MEDS: CEFTRIAXONE 1 GM/50 ML FROZ.PIGGY IV (08:37)
[2019-11-21] MEDS: SODIUM CHLORIDE 0.9% FLUSH 10 ML IV (08:41)
--- NOTE | 2019-11-21 12:45 | PM.DS.1 ---
History of Present Illness History of Present Illness Date Patient Seen: 11/21/19 Time Patient Seen: 12:45 Chief complaint: abd pain/fever/muscle cramps Narrative: As per MARTY Hearn: Yoel Plummer is a pleasant 59 y.o. female with no current medical problems who presented to the ED with a chief complaint of abdominal pain and fever for the past week. She states her pain started in her left lower quadrant and felt like she was constipated, she was having temps up to 102. Patient states that her had some veterinary clindamycin orginally prescribed for their cat. He gave her 2 cc of unknown concentration of liquid clindamycin twice a day for the past week. He states that this helped her feel better in decreased her fevers. She complains of nausea, she has vomited once. She denies abdominal pain or cramping, difficulty breathing, chest pain, she does endorse urinary frequency, denies diarrhea or constipation however has not had a bowel movement in 3 days.. She denies any dysuria does complain of urgency and frequency. She states she has not been able to tolerate foods with fat, but has been eating fruits, and found that warm prunes settled well with her this morning. The patient states she has not seen a healthcare provider in over 20 years, is reluctant to do so due to a bad situation that happened with her in an ED in the [facility]. In the ED, chest xray that was done was negative, abdominal/pelvis CT indicated Impacted moderately large calculus within the proximal left ureter measuring up to 10 mm in maximal dimension, craniocaudad, with 5 x 6 mm measurement of the calculus in axial dimensions. This is associated with both hydronephrosis and reduced renal cortical enhancement on the left, indicating high-grade obstruction. Tmax 99.37, BP 128/80, HR 81, RR 16, oxygen saturation 97% on room air, weight 81.6, BMI of 30.9. WBC 13, RBC 3.65, hemoglobin 12.0, hematocrit 35.1, platelet count 286, sodium 129, potassium 3.4, chloride 90, bicarb 26, BUN 22, creatinine 1.45, GFR is 37.2, glucose 149, lactate 1.5, calcium 9.6, bilirubin 0.9, AST 44, ALT 96, procalcitonin is 1.11, urinalysis indicated protein, 2+ occult blood, and a culture is pending, COVID-19 negative Discharge Providers Provider Date of admission: 11/19/19 20:50 Discharge Date: 11/21/19 Primary care physician: Jessica Cole MD Consults: 11/19/19 20:26 Consult to Urology Stat Comment: Consulting Provider: Agnes Frank Reason for consultation: impacted stone Has provider been notified: Yes 11/19/19 21:06 Consult to Physician Routine Comment: Consulting Provider: Agnes Frank Reason for consultation: large left urethral stone Has provider been notified: Yes Discharge provider: Jimi Hansen DO Summary Hospital Course Discharge Diagnosis: 1. 6x10 mm obstructive nephrolithiasis with corresponding L hydronephrosis, acute, present on admission 2. acute cystitis, present on admission. 3. hyponatremia, acute and present on admission 4. Sepsis ruled out. 5. Elevated transaminase levels, present on admission. 6. Acute kidney injury, present on admission. Hospital Course: Yoel Plummer is a pleasant 59 y.o. female with no current medical problems who presented to the ED with a chief of abdominal pain and fever for the past week. She was found to have an obstructing L ureteral stone. She underwent cystoscopy, stone manipulation, and placement of a ureteral stent. SOFA score was only 1. Purulent drainage was noted during manipulation of her stone. Admission creatinine was 1.46 which improved to 1.14 on discharge. Cultures were sent and still pending. She improved with ceftriaxone, and likely manipulation caused slight worsening of her lab work. She clinically was markedly improved following urological interventions and was discharged home on 2 weeks of oral cefdinir 300 mg BID with plans for outpatient urology follow up. Exam Vital Signs (past 8 hours): - 11/21/19 05:37 11/21/19 08:20 Temperature 97.7 F 97.9 F Pulse Rate 62 76 Respiratory Rate 18 16 Blood Pressure 128/75 119/66 Pulse Oximetry 96 95 Oxygen Delivery Method Room Air Oxygen Flow Rate 0 Narrative Exam Narrative: GENERAL APPEARANCE: Well developed, well nourished, in no acute distress. SKIN: Inspection of the skin reveals no rashes, ulcerations or petechiae. HEENT: Normocephalic atraumatic, extraocular muscles are intact, oropharynx is clear and mucous membranes are moist, neck is supple without adenopathy NECK: Supple and symmetric. There was no thyroid enlargement, and no tenderness, or masses were felt. CHEST: Normal AP diameter and normal contour without any kyphoscoliosis. LUNGS: Auscultation of the lungs revealed no wheezes, rhonchi, or rales. CARDIOVASCULAR: There was a regular rate and rhythm without any murmurs, gallops, rubs. Peripheral pulses were 2+ and symmetric. ABDOMEN: Soft and nontender with normal bowel sounds. No ascites was noted. MUSCULOSKELETAL: There was no tenderness or effusions noted. Muscle strength and tone were normal. EXTREMITIES: No cyanosis, clubbing or edema. NEUROLOGIC: Alert and oriented x 3. Normal affect. Gait was normal. Strength is +5/5 in the Upper Extremities and Lower Extremities Bilaterally. Sensation to touch was normal. Objective Labs Result Diagrams: 11/21/19 04:50 11/21/19 04:50 Labs: Laboratory Results - last 24 hr 11/20/19 11/21/19 11/21/19 14:33 04:50 04:50 WBC 14.2 H RBC 3.39 L Hgb 10.9 L Hct 33.5 L MCV 98.7 MCH 32.2 MCHC 32.6 RDW 13.8 Plt Count 287 Neut % (Auto) 91.2 H Lymph % (Auto) 5.8 L [place] % (Auto) 2.8 L Eos % (Auto) 0.0 L Baso % (Auto) 0.2 Neut # (Auto) 85806 H Lymph # (Auto) 800 L [place] # (Auto) 400 Eos # (Auto) 0 Baso # (Auto) 0 Sodium Potassium Chloride Carbon Dioxide BUN Creatinine Estimated GFR BUN/Creatinine Ratio Glucose Hemoglobin A1c Calcium Magnesium Total Bilirubin Conjugated Bilirubin Unconjugated Bilirubin AST ALT Alkaline Phosphatase Total Protein Albumin Globulin Albumin/Globulin Ratio Procalcitonin 13.97 H TSH Urine Color Yellow Urine Appearance Sl cloudy Urine pH 6.0 Ur Specific [place] <=1.005 Urine Protein Trace H Urine Glucose (UA) Negative Urine Ketones Negative Urine Occult Blood 3+ H Urine Nitrate Negative Urine Bilirubin Negative Urine Urobilinogen 1.0 Ur Leukocyte Esterase 3+ H Urine RBC 30-100/hpf H D Urine WBC >100/hpf H D Urine Bacteria Moderate (10-30) H D Ur Culture Indicated? Specimen cultured 11/21/19 11/21/19 11/21/19 04:50 04:50 04:50 WBC RBC Hgb Hct MCV MCH MCHC RDW Plt Count Neut % (Auto) Lymph % (Auto) [place] % (Auto) Eos % (Auto) Baso % (Auto) Neut # (Auto) Lymph # (Auto) [place] # (Auto) Eos # (Auto) Baso # (Auto) Sodium 137 Potassium 4.6 Chloride 102 Carbon Dioxide 26 BUN 20 H Creatinine 1.14 H Estimated GFR 49.1 L BUN/Creatinine Ratio 17.5 Glucose 162 H Hemoglobin A1c 5.6 Calcium 8.9 Magnesium 2.6 H Total Bilirubin 0.4 Conjugated Bilirubin 0.0 Unconjugated Bilirubin 0.1 AST 55 H ALT 88 H Alkaline Phosphatase 140 H Total Protein 7.0 Albumin 3.3 L Globulin 3.7 Albumin/Globulin Ratio 0.9 L Procalcitonin TSH 0.50 Urine Color Urine Appearance Urine pH Ur Specific [place] Urine Protein Urine Glucose (UA) Urine Ketones Urine Occult Blood Urine Nitrate Urine Bilirubin Urine Urobilinogen Ur Leukocyte Esterase Urine RBC Urine WBC Urine Bacteria Ur Culture Indicated? Discharge Plan Discharge Plan Patient Disposition: Home Discharge comment: You were admitted to the hospital with an infected kidney stone, you had a procedure with urology and improved. You will continue on antibiotics for 2 weeks and follow up with urology for possible stone removal or additional imaging. Discharge orders & Medications Prescriptions: New cefdinir 300 mg capsule 300 mg PO BID 14 Days Qty: 28 RF: 0 Follow up/Referrals: Jessica Cole MD [Primary Care Provider] - Agnes Frank MD [Physician] - 2 Weeks (f/u inpatient consult) Diet/Activity/Treatments Diet: Diet as Tolerated Activity: As tolerated Visit Report/Discharge Packet Instructions: Kidney Stones -- Adult, DI for Cystoscopy, Cefdinir Visit Report Forms: Patient Portal/API, Stroke Signs & Symptoms Discharge Data Primary Care Provider: Jessica Cole Attending Provider: Steph Bates Admit Date/Time: 11/19/19 20:50 Discharges patient from system. Discharge Date/Time: 11/21/19 13:53 Quality VTE Deep Vein Thrombosis/Pulmonary Embolism Present on Admission: No
--- NOTE | 2019-11-21 13:31 | P.PN_ITS ---
Subjective Subjective Date Patient Seen: 11/21/19 Time Patient Seen: 12:30 Interval history: She reports an uneventful interval and is feeling very well. She reports fever and diaphoresis episode much less severe than preoperatively. She has improved lower urinary tract symptoms verses the evening immediately postop. She is tolerating a general diet well, is voiding without difficulty, and has had return of bowel function. Exam Vital Signs (past 8 hours): - 11/21/19 05:37 11/21/19 08:20 Temperature 97.7 F 97.9 F Pulse Rate 62 76 Respiratory Rate 18 16 Blood Pressure 128/75 119/66 Pulse Oximetry 96 95 Oxygen Delivery Method Room Air Oxygen Flow Rate 0 Narrative Exam Narrative: She is sitting comfortably upright in bed and in no acute distress and enjoying her lunch. Abdomen-soft and protuberant and nontender. Objective Labs Result Diagrams: 11/21/19 04:50 11/21/19 04:50 Labs: Laboratory Results - last 24 hr 11/20/19 11/21/19 11/21/19 14:33 04:50 04:50 WBC 14.2 H RBC 3.39 L Hgb 10.9 L Hct 33.5 L MCV 98.7 MCH 32.2 MCHC 32.6 RDW 13.8 Plt Count 287 Neut % (Auto) 91.2 H Lymph % (Auto) 5.8 L [place] % (Auto) 2.8 L Eos % (Auto) 0.0 L Baso % (Auto) 0.2 Neut # (Auto) 32429 H Lymph # (Auto) 800 L [place] # (Auto) 400 Eos # (Auto) 0 Baso # (Auto) 0 Sodium Potassium Chloride Carbon Dioxide BUN Creatinine Estimated GFR BUN/Creatinine Ratio Glucose Hemoglobin A1c Calcium Magnesium Total Bilirubin Conjugated Bilirubin Unconjugated Bilirubin AST ALT Alkaline Phosphatase Total Protein Albumin Globulin Albumin/Globulin Ratio Procalcitonin 13.97 H TSH Urine Color Yellow Urine Appearance Sl cloudy Urine pH 6.0 Ur Specific [place] <=1.005 Urine Protein Trace H Urine Glucose (UA) Negative Urine Ketones Negative Urine Occult Blood 3+ H Urine Nitrate Negative Urine Bilirubin Negative Urine Urobilinogen 1.0 Ur Leukocyte Esterase 3+ H Urine RBC 30-100/hpf H D Urine WBC >100/hpf H D Urine Bacteria Moderate (10-30) H D Ur Culture Indicated? Specimen cultured 11/21/19 11/21/1920 04:50 04:50 04:50 WBC RBC Hgb Hct MCV MCH MCHC RDW Plt Count Neut % (Auto) Lymph % (Auto) [place] % (Auto) Eos % (Auto) Baso % (Auto) Neut # (Auto) Lymph # (Auto) [place] # (Auto) Eos # (Auto) Baso # (Auto) Sodium 137 Potassium 4.6 Chloride 102 Carbon Dioxide 26 BUN 20 H Creatinine 1.14 H Estimated GFR 49.1 L BUN/Creatinine Ratio 17.5 Glucose 162 H Hemoglobin A1c 5.6 Calcium 8.9 Magnesium 2.6 H Total Bilirubin 0.4 Conjugated Bilirubin 0.0 Unconjugated Bilirubin 0.1 AST 55 H ALT 88 H Alkaline Phosphatase 140 H Total Protein 7.0 Albumin 3.3 L Globulin 3.7 Albumin/Globulin Ratio 0.9 L Procalcitonin TSH 0.50 Urine Color Urine Appearance Urine pH Ur Specific [place] Urine Protein Urine Glucose (UA) Urine Ketones Urine Occult Blood Urine Nitrate Urine Bilirubin Urine Urobilinogen Ur Leukocyte Esterase Urine RBC Urine WBC Urine Bacteria Ur Culture Indicated? Assessment & Plan Assessment & Plan narrative: Assessment: 1. Clinically markedly improved postop day 1. Status post cystoscopy, left proximal ureteral stone manipulation, and placement left double-J ureteral stent. Postoperative KUB is interpreted by radiology as non visualization of the index calculus. Upon my review, I think I can see the calculus just above the left transverse process of L3. However, stool and bowel gas pattern and prominent as obscures definitive visualization. Blood and urine cultures upon presentation are either negative or deemed on suitable for further study, isolation and sensitivity. Urine culture obtained intraoperatively is pending. Urinalysis showed moderate bacteria. Hopefully we will be able to isolate the pathogen. Given that she has responded well to ceftriaxone, I discussed with the patient and with Dr. Hansen, discharge plan. Given her clinical improvement, it would seem reasonable to switch her to a oral close equivalent and follow up on cultures when available and make any adjustments in the regimen at that time. Plan: 1. Repeat KUB and outpatient visit to Urology Clinic in 10-14 days.. 2. Ceftin are 300 mg p.o. b.i.d. times 14 days. 3. We will discuss and plan definitive intervention, i.e., ureteroscopic laser lithotripsy versus ESWL upon review of repeat KUB. Quality VTE Deep Vein Thrombosis/Pulmonary Embolism Present on Admission: No
--- NOTE | 2019-11-21 13:36 | PC.NURSE ---
Pt is showered and dressed and ready for discharge home with Spouse on the [address] [place]. Pt has a priority boarding pass. Went over d/c instructions with Pt-discussed d/c meds, time of last dose, reviewed stroke education, encouraged fluid intake, probiotics and follow up. Pt denies further questions and will be taken out via w/c by [employer] with Spouse and all belongings.
--- NOTE | 2019-11-27 18:59 | PC.NURSE ---
Late Entry; Rocephin infusion initiated 11/20 at 08:37 complete at 09:08.
== END 2019-11-21 13:53 | disposition home or self-care (01) ==
LOC: ED 18:57 → AC 20:50
PROVIDERS: Internal Medicine; Specialist; Admitting Provider Nurse Practitioner Family; Emergency Provider Nurse Practitioner Family; PCP Family Medicine; Referring Provider Nurse Practitioner Family; Visit Provider Nurse Practitioner Family
PROC: (CPT 52330; principal; 2019-11-20 13:30)
DX: N20.1 Calculus of ureter (principal); N13.1 Hydronephrosis with ureteral stricture, not elsewhere classified; E87.1 Hypo-osmolality and hyponatremia; N30.00 Acute cystitis without hematuria; N17.9 Acute kidney failure, unspecified; R74.0 Nonspecific elevation of levels of transaminase and lactic acid dehydrogenase [LDH]; Z11.59 Encounter for screening for other viral diseases
CPT/HCPCS: 52330; 36415; 36592; 71045; 74018; 74177; 76000; 80048; 80053; 80076; 81001; 82150; 83036; 83605; 83690; 83735; 84145; 84443; 85025; 87086; 87635; 96361; 96365; 96366; 96367; 96375; 99219; 99284; G0378; J0690; J1100; J2250; J2405; J2704; J3010; Q9967

== ENCOUNTER → 2019-12-10 16:23 | Outpatient (CLI) | payer SELFPAY ==
[2019-11-19 21:52] VITALS: BMI 30.9
== END ==
PROVIDERS: PCP Family Medicine; Visit Provider Specialist
DX: N39.0 Urinary tract infection, site not specified (principal)
CPT/HCPCS: 87077; 87086; 87186

== ENCOUNTER 2019-12-27 10:33 | Day surgery (SDC) | payer OTHER, SELFPAY ==
[2019-12-27] VITALS (7 sets, daily range): BP systolic 99–134; BP diastolic 58–81; PULSE 66–112; RESP 12–17; TEMP 35.6–36.9; O2SAT 93–99; BMI 30.9
--- NOTE | 2019-12-27 | DI.RAD.S_ITS ---
PROCEDURE: XR ABDOMEN 1V INDICATIONS: LEFT KIDNEY STONE TECHNIQUE: One view of the abdomen acquired. COMPARISON: [facility], CR, XR ABDOMEN 1V, 11/20/2019, 14:22. FINDINGS: Surgical changes and devices: Single-view available, left upper quadrant, where what appears to be a double pigtail ureteral catheter on the left is partially visualized.. Bowel: Bowel gas pattern is normal. Soft tissues: No suspicious abdominal calcifications. Visualized solid organ contours appear normal in size. Bones: No suspicious bony lesions. IMPRESSION: No urinary tract stone found. Partial visualization of a presumed double pigtail ureteral catheter on the left. Dictated by: Juan José Reis M.D. on 12/27/2019 at 16:22 Approved by: Juan José Reis M.D. on 12/27/2019 at 16:23
[2019-12-27 11:50] LABS: COVID19 -Nasal RAPID Negative (Negative)
[2019-12-27] MEDS: LACTATED RINGERS 1,000 ML 42 ML IV (12:39)
--- NOTE | 2019-12-27 14:11 | SUR.OPER ---
Lithotomy on padded OR bed, head on pillow, arms secured on padded arm boards at <90 degrees abduction. Legs secured in padded yellow fins stirrups.
--- NOTE | 2019-12-27 14:34 | PM.PREOP ---
Pre-operative Note Interval Note History & Physical reviewed/Exam performed by Physician: Yes Changes to H&P: No
[2019-12-27] MEDS: CEFAZOLIN 2 GM/100 ML FROZ.PIGGY IV (14:58)
[2019-12-27] MEDS: IOPAMIDOL 15 ML VIAL INJ (15:28)
--- NOTE | 2019-12-27 15:54 | SUR.OPER ---
SOLTIVE LASER USED, TOTAL TIME 5:21, TOTAL JOULES [id number]
[2019-12-27] MEDS: BELLADONNA/OPIUM SUPPOSITORIES 1 EACH PR (15:58)
--- NOTE | 2019-12-27 16:37 | SUR.PHASEII ---
Pt up to BR, steady on feet. Urine bloody, no clots, strained and no stones.
[2019-12-27] MEDS: FUROSEMIDE 20 MG/2 ML VIAL IV (16:44)
--- NOTE | 2019-12-27 17:21 | SUR.PHASEII ---
Urine strained x3, no sediment noted. VVO patient may discharge per Dr. Frank.
--- NOTE | 2019-12-31 12:34 | PM.OP.1 ---
Operative Date/Time/Diagnoses Date of procedure: 12/27/19 Time of procedure: 15:35 Pre-op diagnosis: History of obstructing left proximal ureteral calculus. Retained left ureteral stent. Post-op diagnosis: same Procedure & Clinicians Procedure: 1. Cystoscopy and left ureteroscopic intrarenal laser lithotripsy. 2. Cystoscopy and left ureteral stent exchange. Same procedure as scheduled: Yes Indications: 1. History of obstructing left proximal ureteral calculus 2. Retained left ureteral stent. Surgeon: Agnes Frank Click Yes if Unassisted: Yes Anesthesia Type: General Operative Notes Findings: 1. Urethra-normal caliber and contour. 2. Bladder-trace trabeculation. Normal right ureteral orifice. There is mild to moderate bullous edema and erythema associated with the left ureteral orifice and retained indwelling stent. Otherwise, trace trabeculation and no urothelial lesions or tumors. 3. Left ureter-normal caliber without lesion or retained stone. 4. The index calculus was located line at the medial aspect of the superior pole collecting system. It was subsequently laser fragmented with excellent treatment result. Closure Type: not applicable Specimen(s): none sent Applied: other (Left ureteral stent) Estimated Blood Loss (mL): 0 Blood products transfused: none Tourniquet time (min): 0 Procedure in detail: The patient was positioned supine and was administered general anesthesia. She was then repositioned in semi lithotomy and the lower abdomen, genitalia, and perineum were prepped and draped in sterile fashion. The 22 [place] panendoscope was then advanced lower urinary tract with the findings as described above. An alligator for foreign body grasper was then used to engage the distal end of the stent and bring it out to the perineum. A 0.35 guidewire was then advanced through the lumen of the stent advanced proximally so as to form a coil in the intrarenal collecting system on the left under direct and fluoroscopic guidance the existing stent was then backloaded off the wire discarded. A dual-lumen ureteral access catheter was then advanced over the 0.35 guidewire under direct and fluoroscopic guidance. A 2nd 0.35 guidewire was then advanced through the accessory lumen. Now the dual lumen access catheter was backloaded off both wires. One of the wires was coiled and attached to the operative drape. The other wire was utilized to advance the flexible ureteral scope over and guided under fluoroscopy into the left intrarenal collecting system. This guidewire was then removed. Retrograde pyelogram was then performed cyst size to delineate the contours and confines of the collecting system. A systematic examination of the entire collecting system was then undertaken with the findings as described above. A 150 micron laser fiber was then selected. All operating room personnel and patient were fitted with laser safety eyewear. Laser lithotripsy was then commenced with excellent subsequent fragmentation. Much hematuria was rinsed hydrostatic Koki into the ureter proper the ureteral scope was then removed and the panendoscope was front loaded on the accessory wire. A 6 [place] by 22-32 cm ureteral stent was then selected. This was advanced over the guidewire under direct and fluoroscopic guidance and positioned satisfactorily in the left collecting system. A RETRIEVAL LINE WAS LEFT ATTACHED. The bladder was then drained completely and all instrumentation was removed patient was then repositioned supine, awakened, and transferred to [facility] in stable condition.. Complications: none Post-operative Condition: stable Disposition: PACU Plan for aftercare: Discharge home
== END 2019-12-27 17:21 | disposition home or self-care (01) ==
PROVIDERS: PCP Family Medicine; Referring Provider Specialist; Visit Provider Specialist
PROC: (CPT 52356; principal; 2019-12-27 13:45)
DX: N20.0 Calculus of kidney (principal); Z11.59 Encounter for screening for other viral diseases
CPT/HCPCS: 52356; 74018; 76000; 87086; 87635; J0690; J1100; J1940; J2405; J2704; J3010

== ENCOUNTER → 2020-01-01 10:53 | Outpatient (CLI) | payer OTHER, SELFPAY | PROVIDERS: PCP Family Medicine; Visit Provider Specialist | DX: N39.0 Urinary tract infection, site not specified (principal) | CPT/HCPCS: 81002; 87077; 87086; 87186 ==

== ENCOUNTER → 2020-07-30 15:08 | Outpatient (CLI) | payer OTHER, SELFPAY | PROVIDERS: PCP Family Medicine; Visit Provider Physician Assistant | DX: Z87.440 Personal history of urinary (tract) infections (principal); N20.1 Calculus of ureter | CPT/HCPCS: 87086 ==

== ENCOUNTER → 2020-08-06 11:37 | Outpatient (CLI) | payer OTHER, SELFPAY | PROVIDERS: PCP Family Medicine; Visit Provider Physician Assistant | DX: R82.90 Unspecified abnormal findings in urine (principal); Z87.440 Personal history of urinary (tract) infections | CPT/HCPCS: 87077; 87086 ==

== ENCOUNTER → 2023-04-21 12:59 | Outpatient (CLI) | payer OTHER, MEDICAID, SELFPAY | PROVIDERS: PCP Family Medicine; Visit Provider Family Medicine | DX: R10.9 Unspecified abdominal pain (principal); Z87.440 Personal history of urinary (tract) infections; Z87.442 Personal history of urinary calculi | CPT/HCPCS: 81002; 87086 ==

== ENCOUNTER → 2023-04-24 13:01 | Outpatient (CLI) | payer OTHER, MEDICAID, SELFPAY ==
[2023-04-24 19:36] LABS: Add Manual Diff / Slide Review NO; Basophils Absolute Auto 0 /uL (0-100); Basophils Percent Auto 0.6 % (0-2); Eosinophils Absolute Auto 100 /uL (0-450); Eosinophils Percent Auto 1.5 % (2-4); Hematocrit 41.7 % (36-46); Hemoglobin 14.1 g/dL (12.0-16.0); Lymphocytes Absolute Auto 1800 /uL (1100-4500); Lymphocytes Percent Auto 29.8 % (25-40); Mean Corpuscular HGB Conc 33.8 % (30-36); Mean Corpuscular Hemoglobin 32.3 PG (26-34); Mean Corpuscular Volume 95.6 fL (80-100); Monocytes Absolute Auto 500 /uL (0-900); Monocytes Percent Auto 8.4 % (3-14); Neutrophils Absolute Auto 3600 /uL (1500-7000); Neutrophils Percent Auto 59.7 % (50-75); Platelet Count 235 X10^3/uL (150-400); Red Blood Cell Count 4.36 X10^6/uL (4.0-5.2); Red Cell Distribution Width 12.4 % (11.6-14.8)
[2023-04-24 19:47] LABS: Alanine Aminotransferase 47 IU/L (<35); Albumin 4.8 g/dL (3.5-5.0); Albumin Globulin Ratio 1.3 (1.0-2.8); Alkaline Phosphatase 60 U/L (38-126); Aspartate Aminotransferase 32 IU/L (14-36); Bilirubin Total 0.5 mg/dL (0.2-1.3); Blood Urea Nitrogen 15 mg/dL (7-17); Calcium 10.4 mg/dL (8.4-10.2); Carbon Dioxide 28 mmol/L (22-32); Chloride 102 mmol/L (98-107); Estimated Glomerular Filt Rate > 60 mL/min (>60); Globulin 3.8 g/dL (1.7-4.1); Glucose 96 mg/dL (80-110); HEMOLYSIS < 15 (0-50); Potassium 4.1 mmol/L (3.4-5.1); Sodium 139 mmol/L (137-145); Total Protein 8.6 g/dL (6.3-8.2)
== END ==
PROVIDERS: PCP Family Medicine; Visit Provider Family Medicine
DX: R10.32 Left lower quadrant pain (principal); R10.9 Unspecified abdominal pain
CPT/HCPCS: 80053; 85025

== ENCOUNTER → 2023-04-28 10:02 | Outpatient (CLI) | payer OTHER, MEDICAID, SELFPAY ==
--- NOTE | 2023-04-28 10:04 | DI.CT.S_ITS ---
PROCEDURE: CT ABDOMEN PELVIS W CON INDICATIONS: LLQ pain, history of kidney stones with obstruction TECHNIQUE: After the administration of intravenous contrast, axial sections acquired from the lung bases to the pubic symphysis. Coronal and sagittal reformats were performed. For radiation dose reduction, the following was used: automated exposure control, adjustment of mA and/or kV according to patient size. COMPARISON: [facility], CT, CT ABDOMEN PELVIS W CON, 11/19/2019, 19:39. FINDINGS: Image quality: Diagnostic. Lower Chest: No significant findings. ABDOMEN: Liver: No solid mass. Hepatic steatosis. Gallbladder: No radiopaque gallstones or wall thickening. Biliary ducts: No biliary dilation. Pancreas: No ductal dilation. Spleen: Size is within normal limits. Adrenal Glands: No adrenal nodules. Kidneys and Ureters: No hydronephrosis. No solid mass. No complex renal cystic lesion which requires follow up. Small burden of punctate, nonobstructing left-sided nephrolithiasis. Stomach and Bowel: Normal colonic caliber, without significant wall thickening. Colonic diverticulosis without evidence of diverticulitis. Fecal debris within the small bowel. Peritoneum: No abnormal intraperitoneal fluid. No free air. Ventral Wall: No significant ventral hernia. Tiny umbilical hernia containing fat. Abdominal Nodes: No retroperitoneal or mesenteric adenopathy by size criteria. Vessels: Aorta and inferior vena cava are normal in size. PELVIS: Pelvic Organs: Unremarkable. Bladder: No bladder wall thickening, accounting for underdistention. Pelvic Nodes: No enlarged lymph nodes. Miscellaneous: No inguinal hernias are seen. Bones: No aggressive osseous abnormality. IMPRESSION: Colonic diverticulosis without evidence of diverticulitis. Small burden of punctate, nonobstructing left-sided nephrolithiasis. Dictated by: Syd Herrera M.D. on 04/28/2023 at 12:56 Approved by: Syd Herrera M.D. on 04/28/2023 at 12:57
== END ==
LOC: CT 10:03
PROVIDERS: PCP Family Medicine; Referring Provider Family Medicine; Visit Provider Family Medicine
DX: R10.32 Left lower quadrant pain (principal); K57.90 Diverticulosis of intestine, part unspecified, without perforation or abscess without bleeding; N20.0 Calculus of kidney; Z87.442 Personal history of urinary calculi
CPT/HCPCS: 74177; Q9967

== ENCOUNTER 2023-08-02 09:35 | Emergency (ER) | payer OTHER, MEDICAID, SELFPAY ==
[2023-08-02 09:40] VITALS: PULSE 88; O2SAT 96
[2023-08-02 09:41] VITALS: BP 182/87; PULSE 84; O2SAT 97
[2023-08-02 09:45] VITALS: BP 182/87; PULSE 78; RESP 16; TEMP 36.7; O2SAT 97; BMI 33.4
[2023-08-02 09:48] VITALS: PULSE 78
--- NOTE | 2023-08-02 09:51 | ED.EXTPRO ---
HPI - Extremity Problem General Chief complaint: Extremity Problem,Nontraumatic Stated complaint: per pt thinks she pulled hand string L Time Seen by Provider: 08/02/23 09:38 Source: patient Mode of arrival: Wheelchair History of Present Illness HPI Narrative: Patient is a 63-year-old female who is here for evaluation of the potentially pulling her left hamstring. States yesterday she was helping move and she was trying to step up into the back of a truck. She states that she was lifting her left leg off the ground she had a sudden pain in the back of her leg. Since that time she has had pain in the back of the leg that radiates to the left calf and also up to her left buttocks. She has been using a knee brace. Has been using ice. Has been trying to stay off it as much as possible. No other injuries from the event. Related Data Home Medications Medication Instructions Recorded Confirmed No Known Home Medications 05/19/23 08/02/23 Allergies Allergy/AdvReac Type Severity Reaction Status Date / Time Tetracyclines Allergy Intermediate incontinenc Verified 05/19/23 11:46 e Review of Systems Constitutional Constitutional: Reports system reviewed and no additional complaints, except as documented Musculoskeletal Musculoskeletal: Reports system reviewed and no additional complaints, except as documented Neurologic Neurologic: Reports system reviewed and no additional complaints, except as documented Patient History Medical History History of nephrolithiasis History of kidney stones Left nephrolithiasis Sinus infection Cough History of recent hospitalization (11/20/19) History of UTI Ureteral calculus, left Melanoma Surgical History Hx of cystoscopy (11/20/19) Hx of section Family History Mother Myocardial infarction Father Unknown family medical history Social History household members: spouse Smoking Status: Never smoker alcohol intake: current additional social history: OI since 2017 fulltime. 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 Left lateral hamstring is unremarkable. ACL MCL PCL and LCL are all intact for functional testing. Quadriceps tendon patellar tendon intact. No tenderness along the joint line. Course Vital Signs Vital signs: Vital Signs - 8 hr 08/02/23 09:40 08/02/23 09:41 08/02/23 09:41 Temperature Pulse Rate 88 84 Pulse Rate [Left Posterior Tibial] Respiratory Rate Blood Pressure 182/87 H Pulse Oximetry 96 97 Oxygen Delivery Method 08/02/23 09:45 08/02/23 09:48 Temperature 98.1 F Pulse Rate 78 Pulse Rate [Left Posterior Tibial] 78 Respiratory Rate 16 Blood Pressure 182/87 H Pulse Oximetry 97 Oxygen Delivery Method Room Air MDM - Extremity (Nontraumatic) MDM Narrative Medical decision making narrative: History and physical exam is most consistent with a medial hamstring strain. Low suspicion that this is torn. No indication for radiologic studies. Recommended conservative treatment for now. Was given return precautions. She expressed understanding and agreement. Discharge Plan Departure Patient Disposition: Home Clinical Impression: Left hamstring muscle strain Instructions: DI for Hamstring Strain, How To Perform RICE (Rest, Ice, Compress, Elevate) Activity Restrictions/Additional Instructions: You can wear the knee brace as needed. You can walk as tolerated. I do recommend using ice. Return to the emergency department for new symptoms. Prescriptions: No Action No Known Home Medications Referrals: Estela Velazquez MD [Primary Care Provider] - Stand Alone Forms: Patient Portal/API
== END 2023-08-02 10:00 | disposition home or self-care (01) ==
PROVIDERS: Emergency Provider Emergency Medicine; PCP Family Medicine
DX: S86.112A Strain of other muscle(s) and tendon(s) of posterior muscle group at lower leg level, left leg, initial encounter (principal); N20.2 Calculus of kidney with calculus of ureter; E83.52 Hypercalcemia; X50.9XXA Other and unspecified overexertion or strenuous movements or postures, initial encounter; Z87.442 Personal history of urinary calculi
CPT/HCPCS: 74018; 81002; 99214; 99281; 99282

== ENCOUNTER → 2023-08-02 10:05 | Outpatient (CLI) | payer OTHER, MEDICAID, SELFPAY ==
--- NOTE | 2023-08-02 10:06 | DI.RAD.S_ITS ---
PROCEDURE: XR KUB INDICATIONS: Left Nephrolithiasis TECHNIQUE: One view of the abdomen acquired. COMPARISON: [facility], CT, CT ABDOMEN PELVIS W CON, 04/28/2023, 11:25. [facility], CR, XR KUB, 11/20/2019, 15:14. FINDINGS: Surgical changes and devices: None. Bowel: Bowel gas pattern is normal. Soft tissues: Possible left ureteral stone versus artifact. Visualized solid organ contours appear normal in size. Bones: No suspicious bony lesions. IMPRESSION: Possible left ureteral stone versus artifact. Consider CT KUB for follow-up Dictated by: Asha Zayas M.D. on 08/02/2023 at 12:08 Approved by: Asha Zayas M.D. on 08/02/2023 at 12:10
== END ==
LOC: RAD 10:06
PROVIDERS: PCP Family Medicine; Referring Provider Specialist; Visit Provider Specialist
DX: N20.1 Calculus of ureter (principal); E83.52 Hypercalcemia; Z87.442 Personal history of urinary calculi
CPT/HCPCS: 74018

== ENCOUNTER → 2023-08-09 15:25 | Outpatient (CLI) | payer OTHER, MEDICAID, SELFPAY ==
--- NOTE | 2023-08-09 15:26 | DI.CT.S_ITS ---
PROCEDURE: CT KIDNEY URETER BLADDER (KUB) INDICATIONS: left flank pain and history of stones TECHNIQUE: Axial sections were acquired from the lung bases to the pubic symphysis. Coronal and sagittal reformats were performed. For radiation dose reduction, the following was used: automated exposure control, adjustment of mA and/or kV according to patient size. COMPARISON: [facility], CT, CT ABDOMEN PELVIS W CON, 04/28/2023, 11:25. FINDINGS: Image quality: Diagnostic. Lower Chest: No significant findings. URINARY: Right Kidney: No stones or hydronephrosis. Right Ureter: No hydroureter or ureterolithiasis. Left Kidney: Punctate 2 and 3 mm calculi are present at the lower pole of the left kidney. No hydronephrosis. Left Ureter: No hydroureter or ureterolithiasis. Bladder: Normal wall thickness. No stones. ABDOMEN: Liver: The liver is hypodense suggesting fatty infiltration. Gallbladder: The gallbladder is contracted. Biliary ducts: No biliary dilation. Pancreas: No ductal dilation. Spleen: Size is within normal limits. Adrenal Glands: No adrenal nodules. Stomach and Bowel: Normal colonic caliber, without significant wall thickening. There are scattered sigmoid diverticula. No evidence for diverticulitis. The appendix is not visualized; however there is no discrete right lower quadrant fluid or fat stranding to suggest acute appendicitis. Peritoneum: No abnormal intraperitoneal fluid. No free air. Ventral Wall: No hernia. Abdominal Nodes: No enlarged retroperitoneal or mesenteric lymph nodes. Vessels: Aorta and inferior vena cava are normal in size. PELVIS: Pelvic Organs: Unremarkable. Pelvic Nodes: Unremarkable. Miscellaneous: No inguinal hernias are seen. Bones: Unremarkable. IMPRESSION: 1. Nonobstructive left nephrolithiasis. No hydronephrosis, hydroureter, or ureterolithiasis. 2. No acute intra-abdominal findings. Diverticulosis. No acute diverticulitis. 3. The appendix is not visualized; however there are no ancillary findings to suggest acute appendicitis. Dictated by: Niecy Horne M.D. on 08/09/2023 at 17:10 Approved by: Niecy Horne M.D. on 08/09/2023 at 17:14
== END ==
LOC: CT 15:25
PROVIDERS: PCP Family Medicine; Referring Provider Specialist; Visit Provider Specialist
DX: K57.30 Diverticulosis of large intestine without perforation or abscess without bleeding (principal); Z87.442 Personal history of urinary calculi; N20.0 Calculus of kidney
CPT/HCPCS: 74176